=== PATIENT | female | born 1960 | race Caucasian/White ===

== ENCOUNTER 2017-01-07 08:08 | Outpatient (CLI) | payer OTHER ==
[2017-01-07 11:01] LABS: Mean Platelet Volume 8.9 fL (7.4-10.4); White Blood Cell (WBC) Count 9.4 thou/uL (4.8-10.8)
[2017-01-07 11:19] LABS: Anion Gap 11 mmol/L (10-20); BUN (Urea Nitrogen) 13 mg/dL (9.8-20.1); Calc. Creatinine Clearance 0 mL/min (70-130); Calcium 9.9 mg/dL (7.8-10.44); Carbon Dioxide 29 mmol/L (22-29); Chloride 104 mmol/L (98-107); Estimated GFR-MDRD 77
[2017-01-07 11:22] LABS: Prothrombin Time 12.2 SEC (12.0-14.7)
[2017-01-07 11:34] LABS: Bilirubin Negative (Negative); Blood, Urine Negative (Negative); Glucose, Urine (Dipstick) Negative (Negative); Ketone, Urine Negative (Negative); Nitrite Negative (Negative); Protein, Urine (Dipstick) Negative (Neg-Trace); Urobilinogen 0.2 mg/dL (0.2-1.0)
[2017-01-07 11:39] LABS: Bacteria/HPF None Seen HPF (None Seen); Hyaline Casts/LPF 0-3 HYALINE CAST LPF (0-3 Hyaline); RBC/HPF 0-3 HPF (0-3); Squamous Epithelial 0-3 HPF (0-3); WBC/HPF 0-3 HPF (0-3)
== END 2017-01-07 08:09 | disposition home or self-care (01) ==
LOC: LABBT 08:08
PROVIDERS: ATTEND Orthopaedic Surgery
DX: Z01.818 Encounter for other preprocedural examination (principal); M17.12 Unilateral primary osteoarthritis, left knee
CPT/HCPCS: 80048; 81001; 85027; 85610; 86850; 86900; 86901; 87081; 93005; 93010

== ENCOUNTER 2017-01-14 05:45 | Inpatient (IN) | payer OTHER ==
[2017-01-07 08:38] VITALS: BMI 41.1
[2017-01-14] MEDS ORDERED: Fentanyl 100 MCG/2 ML VIAL ONE ×3 (06:11→07:59)
[2017-01-14] MEDS ORDERED: Midazolam HCl 2 mg/2 ml Vial ONE (06:11)
[2017-01-14] MEDS ORDERED: Lidocaine 1% (PF) 30 ML VIAL ONE (06:12)
[2017-01-14] MEDS ORDERED: Tranexamic Acid 1,000 MG/100 ML BAG ONE ×2 (06:38→09:10)
[2017-01-14] MEDS ORDERED: CEFAZOLIN/Water 2 GM/20 ML SYRINGE ONE (06:47)
[2017-01-14] MEDS ORDERED: Ondansetron HCl/PF 4 MG/2 ML Vial IVP PRN ×2 (06:55→07:27)
[2017-01-14] MEDS ORDERED: traMADol HCl 50 MG TAB PO PRN ×3 (06:55→10:49)
[2017-01-14] MEDS ORDERED: HYDROcodone/Acetaminophen 10/325 mg Tablet PO PRN ×2 (06:55)
[2017-01-14] MEDS ORDERED: Ropivacaine HCl/PF 250 ML in Premix Bag 1 BAG NERVE BLCK SCH (06:55)
[2017-01-14] MEDS ORDERED: Zolpidem Tartrate 5 MG TAB PO PRN (06:55)
[2017-01-14] MEDS ORDERED: Promethazine HCl 25 MG/ML VIAL IM PRN ×2 (06:55→07:27)
[2017-01-14] MEDS ORDERED: Fentanyl 100 MCG/2 ML VIAL IV PRN (06:56)
[2017-01-14] MEDS ORDERED: Bupivacaine/Epinephrine 0.25% 30 ML VIAL ONE (07:23)
[2017-01-14] MEDS ORDERED: Promethazine HCl 25 MG/ML VIAL SLOW IVP PRN (07:27)
[2017-01-14] MEDS ORDERED: HYDROmorphone 2 MG/ML VIAL SLOW IVP PRN (07:27)
[2017-01-14] MEDS ORDERED: Tranexamic Acid 1,000 MG in Sodium Chloride 0.9% 100 ML IVPB SCH (09:00)
--- NOTE | 2017-01-14 09:58 | RAD ---
RADIOGRAPH LEFT KNEE TWO VIEWS: Date: 01-14-17 History: 56-year-old female status post left knee surgery. Comparison: None. FINDINGS: Metallic prostheses cover the articular surfaces of the distal femur and tibial plateau. Resurfacing changes of posterior aspect of the patella. Subcutaneous emphysema in the anterior portion of the kne e indicates very recent post-operative status. There is an oblique linear lucency across the proximal fibular metaphysis. IMPRESSION: 1. Immediately status post total left knee replacement arthroplasty. 2. Nondisplaced fracture of proximal fibular metaphysis versus artifact. Recommend dedicated four vie w radiograph of the left knee. Code T POS: [facility]
[2017-01-14] MEDS ORDERED: Aspirin 325 MG TAB PO SCH ×3 (10:49→21:00)
[2017-01-14] MEDS ORDERED: Ferrous Gluconate 324 MG TAB PO SCH ×2 (10:49→11:00)
[2017-01-14] MEDS ORDERED: diphenhydrAMINE 25 MG CAP PO PRN (10:49)
[2017-01-14] MEDS ORDERED: Multivitamin W/ Minerals 1 TAB PO SCH ×2 (10:49→11:00)
[2017-01-14] MEDS ORDERED: Senokot S 8.6-50 MG TAB PO SCH ×2 (10:49→11:00)
[2017-01-14] MEDS: Dextrose 5 %-0.45 % NaCl 1,000 ML IV SCH ×2 (11:43→21:12)
[2017-01-14] MEDS: Ketorolac Tromethamine 30 MG/ML VIAL IVP SCH ×3 (11:50→23:54)
--- NOTE | 2017-01-14 12:46 | OP ---
DATE OF PROCEDURE: 01/14/2017 PREOPERATIVE DIAGNOSIS: Left knee osteoarthritis. POSTOPERATIVE DIAGNOSES: 1. Left knee osteoarthritis. PROCEDURE PERFORMED: Left total knee arthroplasty. STAFF: Boogie Brandt M.D. T[place]IP SUPERVISOR: Francisco Stone PA-C. ANESTHESIA: Usama Chavez. The patient received a general endotracheal intubation , an adductor canal and single shot sciatic. ESTIMATED BLOOD LOSS: 100 mL. TOURNIQUET TIME: 73 minutes. ANTIBIOTICS: Ancef 2 grams, TXA 1 gram. IMPLANTS: Manuel CS femur size 4 with a size 3 tibia baseplate, 9 CS femur, A29 patella. COMPLICATIONS: Partial PCL tear. HISTORY OF PRESENT ILLNESS: Ms. Garcia is a 56-year-old female with 5 months of knee pain. The pain is constant, since weather change this pain would start up, constant pain. The pain is localized to her medial knee. She has had injection and conservative care with nonsteroidal anti-inflammatory drugs. I discussed risks and benefits of procedure to include pain, scar, bleeding, infection, damage to vital structures, decreased range of motion or strength, loss of life or limb. The patient understood the risks and benefits and elected to proceed. PROCEDURE IN DETAIL: Timeout was performed designating the patient's left lower extremity as the operative site based on sight, consents and markings. The patient's left lower extremity was prepped and draped in sterile fashion. Tourniquet was brought up and left up for a total of 73 minutes. Anterior midline incision was made. Medial patellar arthrotomy, the patient's kneecap was everted. We cut the patella. We excised the fat pad, released the medial soft tissues. We then mapped out our distal femur cut at 0 degrees of varus valgus and 40 posterior slope 6 and 10, we had a good nice butterfly cut. We removed the bone and small osteophytes. We then placed our guide and looked at [place] line ensured we had externally rotated appropriately based off the patient's epicondyle, 3 degrees rotation. I liked the position. We pinned into position, we sized to a 4 femur. We cut the femur, I was happy with the overall alignment and position of the femur. We then removed it, we cut our anterior and posterior chamfer cuts. We moved to the tibia. We exposed the tibia, took down the ACL. We placed pinned our tibia guide into place, cut, 0 degrees of varus valgus with a small 2 in one cut with 4 degrees of posterior slope, we removed our tibia fragment. We then smoothed it down to ensure correct position, we then placed our lamina cylinder checker, removed medial and lateral meniscus, ensured we had completely decompressed all of the soft tissues , we pinned our size 3 tibial tray into position, we placed a 9 mm poly, a 4 femur, had good flexion, extension, perfect extension and a stable posterior drawer and stable anterior and posterior drawer, stable on varus and valgus as well as in flexion. I liked the overall alignment of the components. We everted the patella, sized to 24 and 22 mm respectively. Behind those spots we cut down to about 12 mm, we placed an A29 patella, it tracked well. We then drilled our holes for our lugs. We cut our keel for the tibia, we cemented our tibia. We were looking at the end. We noticed that there was a partial tear of the PCL, did not know if it was potentially cut on one of the chamfer cuts. The patient did have a stable posterior drawer. We cemented our tibia, poly and our femur and she had a perfect posterior drawer with perfect symmetric extension. We then washed, cemented our patella, washed and closed, we placed 50 mL of Marcaine without epinephrine intraarticularly, we closed with 0, 2-0, # 2-0 Vicryl followed by 2-0 Quill, 0 Quill, 2-0 Quill, and glue. The patient will be weightbearing as tolerated. The patient will follow Dundy protocol. We will follow her in house. FAINA
[2017-01-14] MEDS ORDERED: Ropivacaine 0.5% HCl/PF (150 MG/30 ML VIAL) ONE (12:56)
[2017-01-14] MEDS ORDERED: Ropivacaine 0.2% HCl/PF (40 MG/20 ML VIAL) ONE (12:56)
[2017-01-14] MEDS ORDERED: Ondansetron HCl/PF 4 MG/2 ML Vial ONE (14:11)
[2017-01-14] MEDS ORDERED: Propofol 200 MG/20 ML VIAL ONE (14:11)
[2017-01-14] MEDS ORDERED: Dexamethasone 20 MG/5 ML VIAL ONE (14:11)
[2017-01-14] MEDS: CEFAZOLIN/Water 2 GM/20 ML SYRINGE SLOW IVP SCH ×2 (15:58→23:54)
[2017-01-14] MEDS: Senokot S 8.6-50 MG TAB PO SCH (21:13)
[2017-01-14] MEDS: Ferrous Gluconate 324 MG TAB PO SCH (21:13)
[2017-01-15 05:30] LABS: Hematocrit 39.8 % (36.0-47.0); Red Blood Cell (RBC) Count 4.16 mill/uL (4.20-5.40)
[2017-01-15] MEDS: Ketorolac Tromethamine 30 MG/ML VIAL IVP SCH ×4 (06:20→23:58)
[2017-01-15] MEDS: Dextrose 5 %-0.45 % NaCl 1,000 ML IV SCH ×2 (07:23→14:07)
[2017-01-15] MEDS ORDERED: PRASTERONE 50 MG PO SCH (09:00)
[2017-01-15] MEDS: Ferrous Gluconate 324 MG TAB PO SCH ×2 (09:35→21:41)
[2017-01-15] MEDS: Multivitamin W/ Minerals 1 TAB PO SCH (09:36)
[2017-01-15] MEDS: Senokot S 8.6-50 MG TAB PO SCH ×2 (09:36→21:40)
[2017-01-15] MEDS: Acetaminophen 325 MG TAB PO PRN (21:40)
[2017-01-16] MEDS: Dextrose 5 %-0.45 % NaCl 1,000 ML IV SCH (02:24)
[2017-01-16 05:28] LABS: Hematocrit 41.6 % (36.0-47.0); Red Blood Cell (RBC) Count 4.33 mill/uL (4.20-5.40); White Blood Cell (WBC) Count 13.4 thou/uL (4.8-10.8)
[2017-01-16] MEDS: Ketorolac Tromethamine 30 MG/ML VIAL IVP SCH (06:14)
[2017-01-16] MEDS: Ferrous Gluconate 324 MG TAB PO SCH (08:13)
[2017-01-16] MEDS: Senokot S 8.6-50 MG TAB PO SCH (08:13)
[2017-01-16] MEDS: Multivitamin W/ Minerals 1 TAB PO SCH (08:13)
[2017-01-16] MEDS: Acetaminophen 325 MG TAB PO PRN ×2 (08:15→14:42)
[2017-01-16 10:07] VITALS: BP 164/88; TEMP 98.1
== END 2017-01-16 15:14 | disposition home or self-care (01) | DRG 470 ==
LOC: SDC 05:45 → EDSTATUS 08:30 → SJJU 08:53
PROVIDERS: ADMIT Orthopaedic Surgery; ATTEND Orthopaedic Surgery
PROC: 0SRD0J9 Replacement of Left Knee Joint with Synthetic Substitute, Cemented, Open Approach (ICD-10-PCS; principal; 2017-01-16)
PROC: 3E0T3BZ Introduction of Anesthetic Agent into Peripheral Nerves and Plexi, Percutaneous Approach (ICD-10-PCS; 2017-01-16)
DX: M17.12 Unilateral primary osteoarthritis, left knee (principal)
CPT/HCPCS: 36415; 85027; A4216; C1713; C1776; G8978-GP-CK; G8979-GP-CJ; J1100; J1885; J2001; J2250; J2405; J2704; J2795; J3010